=== PATIENT | female | born 1955 | race Asian ===

== ENCOUNTER 2024-11-06 03:16 | Emergency (ER) | payer OTHER ==
[~2024-11-06] VITALS: Ht 157.5 cm; Wt 52.0 kg
[2024-11-06 03:24] VITALS: O2SAT 98
[2024-11-06] MEDS ORDERED: SODIUM CHLORIDE 0.9% 1,000 ML IV ONE (04:15)
[2024-11-06] MEDS: TETRACAINE 0.5% OPHTH DROPS 4ML BOTHEYE ONE (04:25)
[2024-11-06] MEDS: FLUORESCEIN SODIUM 1MG/STRIP RIGHTEYE ONE (04:25)
[2024-11-06] MEDS ORDERED: TOBR3.5O RIGHTEYE (04:39)
[2024-11-06] MEDS ORDERED: PROP1DRO2 MT (04:46)
[2024-11-06 04:57] VITALS: BP 167/52; PULSE 85; RESP 18; TEMP 36.7; O2SAT 96
== END 2024-11-06 05:00 | disposition home or self-care (01) ==
LOC: ER 03:50
DX: H11.31 Conjunctival hemorrhage, right eye (principal); E78.00 Pure hypercholesterolemia, unspecified; Z88.6 Allergy status to analgesic agent
CPT/HCPCS: 99283; J7030